=== PATIENT | male | born 1980 | race African-American/Black ===

== ENCOUNTER 2018-01-27 18:02 | Inpatient (IN) | payer SELFPAY ==
[~2018-01-27] VITALS: Ht 185.4 cm; Wt 99.8 kg
[2018-01-27] MEDS ORDERED: ONDANSETRON HCL 4MG/2ML VIAL IV STA (21:12)
[2018-01-27] MEDS ORDERED: SODIUM CHLORIDE 0.9% 1,000 ML IV ONE (21:12)
[2018-01-27] MEDS ORDERED: MORPHINE SULFATE 4 MG/ML CPJ (NOT FOR IM USE) IV STA (21:12)
[2018-01-27] MEDS ORDERED: FAMOTIDINE 20MG/2ML VIAL IV STA (21:12)
[2018-01-27 22:07] LABS: BASOPHILS % 0.6 % (0.0-2.0); EOSINOPHILS % 3.9 % (0.0-5.0); HEMATOCRIT. 39.7 % (42.0-52.0); HEMOGLOBIN. 13.7 g/dL (14.0-18.0); LYMPHOCYTES % 42.3 % (20.0-50.0); MEAN CORPUSCULAR HEMOGLOBIN 28.2 pg (28.0-32.0); MEAN CORPUSCULAR VOLUME 81.7 fL (80.0-94.0); MEAN PLATELET VOLUME 9.3 fl (7.4-10.4); MONOCYTES % 9.9 % (2.0-8.0); NEUTROPHILS % 43.3 % (40.0-76.0); PLATELET 104 x1000/uL (130-400); RED BLOOD CELL COUNT 4.85 mill/uL (4.7-6.1); RED CELL DISTRIBUTION WIDTH 12.9 % (11.6-14.6)
[2018-01-27 22:11] LABS: CHLORIDE 106 mEq/L (98-107)
[2018-01-27 22:14] LABS: ETHANOL BLOOD < 10 mg/dL
[2018-01-28] MEDS ORDERED: MORPHINE SULFATE 4 MG/ML CPJ (NOT FOR IM USE) IV ONE (00:30)
[2018-01-28 01:10] LABS: CLARITY URINE CLEAR (CLEAR); COLOR URINE YELLOW (YELLOW); KETONES URINE NEGATIVE (NEGATIVE); LEUKOCYTE ESTERASE URINE NEGATIVE (NEGATIVE); NITRITE URINE NEGATIVE (NEGATIVE); OCCULT BLOOD URINE NEGATIVE (NEGATIVE); PROTEIN URINE NEGATIVE (NEGATIVE); SPECIFIC GRAVITY URINE 1.015 (1.005-1.030)
[2018-01-28 01:18] LABS: *AMPHETAMINES SCREEN URINE NEGATIVE (NEGATIVE); *BARBITURATES SCREEN URINE NEGATIVE (NEGATIVE)
[2018-01-28 01:19] LABS: *BENZODIAZEPINES SCREEN URINE NEGATIVE (NEGATIVE); *COCAINE SCREEN URINE NEGATIVE (NEGATIVE); CANNABINOID URINE SCREEN NEGATIVE (NEGATIVE); METHADONE URINE SCREEN NEGATIVE (NEGATIVE); OPIATES URINE SCREEN PRESUMTIVE POSITIVE (NEGATIVE); PHENCYCLIDINE URINE SCREEN NEGATIVE (NEGATIVE)
[2018-01-28] MEDS ORDERED: SODIUM CHLORIDE 0.9% 1,000 ML IV SCH (04:02)
[2018-01-28] MEDS ORDERED: ONDANSETRON HCL 4MG/2ML VIAL IV PRN ×2 (04:15→04:30)
[2018-01-28] MEDS ORDERED: KETOROLAC 30MG/ML VIAL IV PRN (04:15)
[2018-01-28] MEDS ORDERED: DIPHENHYDRAMINE 50MG/ML VIAL IV PRN ×2 (04:15→04:30)
[2018-01-28] MEDS ORDERED: ACETAMINOPHEN 325MG TABLET PO PRN ×2 (04:15→04:30)
[2018-01-28] MEDS ORDERED: MAGNESIUM/ALUMINUM HYDROXIDE/SIMETHICONE 30ML UDC PO PRN (04:15)
[2018-01-28] MEDS ORDERED: CLONIDINE 0.1MG TABLET PO PRN (04:30)
[2018-01-28] MEDS ORDERED: MORPHINE SULFATE 2 MG/ML CPJ (NOT FOR IM USE) IV ONE (04:30)
[2018-01-28 08:00] VITALS: BP 140/98
[2018-01-28] MEDS: MORPHINE SULFATE 4 MG/ML CPJ (NOT FOR IM USE) IV PRN ×2 (08:51→18:17)
[2018-01-28] MEDS ORDERED: FAMOTIDINE 20MG/2ML VIAL IV SCH ×2 (09:00)
[2018-01-28] MEDS: FAMOTIDINE 20MG/2ML VIAL IV SCH ×2 (09:00→21:20)
[2018-01-28 10:32] LABS: EOSINOPHILS % 4.7 % (0.0-5.0); HEMATOCRIT. 39.6 % (42.0-52.0); HEMOGLOBIN. 13.5 g/dL (14.0-18.0); LYMPHOCYTES % 43.1 % (20.0-50.0); MEAN CORPUSCULAR HEMOGLOBIN 28.2 pg (28.0-32.0); MEAN CORPUSCULAR VOLUME 82.4 fL (80.0-94.0); MEAN PLATELET VOLUME 8.7 fl (7.4-10.4); MONOCYTES % 10.9 % (2.0-8.0); NEUTROPHILS % 40.3 % (40.0-76.0); PLATELET 90 x1000/uL (130-400); RED CELL DISTRIBUTION WIDTH 12.8 % (11.6-14.6)
[2018-01-28 11:08] LABS: CHLORIDE 107 mEq/L (98-107)
[2018-01-28 12:00] VITALS: BP 147/105
[2018-01-28] MEDS: SODIUM CHLORIDE 0.9% 1,000 ML IV SCH ×2 (12:13→14:16)
[2018-01-28 16:00] VITALS: BP 139/100
[2018-01-28 20:00] VITALS: BP 103/63
[2018-01-29] VITALS: BP 131/92
[2018-01-29] MEDS: SODIUM CHLORIDE 0.9% 1,000 ML IV SCH (00:16)
[2018-01-29 04:00] VITALS: BP 145/106
[2018-01-29] MEDS: CLONIDINE 0.1MG TABLET PO PRN (05:20)
[2018-01-29 06:49] VITALS: BP 138/90
[2018-01-29 08:00] VITALS: BP 133/97
[2018-01-29] MEDS: FAMOTIDINE 20MG/2ML VIAL IV SCH ×2 (08:00→22:05)
[2018-01-29 12:00] VITALS: BP 145/98
[2018-01-29 20:00] VITALS: BP 141/97
[2018-01-30] VITALS: BP 146/106
[2018-01-30 04:00] VITALS: BP 150/106
[2018-01-30 08:00] VITALS: BP 139/104
[2018-01-30] MEDS: FAMOTIDINE 20MG/2ML VIAL IV SCH (08:44)
[2018-01-30] MEDS: CLONIDINE 0.1MG TABLET PO PRN (08:44)
[2018-01-30] MEDS: SODIUM CHLORIDE 0.9% 1,000 ML IV SCH (08:46)
[2018-01-30 11:49] VITALS: BP 154/103
[2018-01-30] MEDS ORDERED: AMLODIPINE 10MG TABLET PO NR (12:00)
[2018-01-30 13:29] VITALS: BP 154/103
[2018-01-30] MEDS ORDERED: AMLO10TA80 MT (13:32)
== END 2018-01-30 13:59 | disposition home or self-care (01) | DRG 254 ==
LOC: ER 18:02 → 6EST 01-28 00:32 → ENRESERV 01-28 03:57
PROVIDERS: ADMIT Internal Medicine; ATTEND Internal Medicine
DX: K43.9 Ventral hernia without obstruction or gangrene (principal); D72.819 Decreased white blood cell count, unspecified; K42.9 Umbilical hernia without obstruction or gangrene; I10 Essential (primary) hypertension; Z59.0 Homelessness; Z91.14 Patient's other noncompliance with medication regimen; Z90.49 Acquired absence of other specified parts of digestive tract
CPT/HCPCS: 36415; 71045; 74176; 80048; 80053; 80305; 81003; 83690; 84484; 85025; 85610; 96361; 96374; 96375; 96376; 99285; G0482; J1200; J2270; J2405; J3490; J7030